=== PATIENT | female | born 1990 | race Two or more races ===

== ENCOUNTER 2024-03-30 13:48 | Inpatient (IN) | payer BC ==
[~2024-03-30] VITALS: Ht 160 cm; Wt 79.4 kg
[2024-03-30 14:08] VITALS: BP 105/83; PULSE 124; RESP 18; TEMP 97.6; O2SAT 98
[2024-03-30] MEDS: NACL 0.9% 1,000 ML IV ONE (14:46)
[2024-03-30] MEDS: KETOROLAC 30 MG/ML VIAL IVP ONE (14:46)
[2024-03-30 14:55] LABS: BASOPHILS # (AUTO) 0.1 K/uL (0.00-0.22); BASOPHILS % (AUTO) 0.6 % (0.0-2.0); EOSINOPHILS % (AUTO) 0.2 % (0.0-4.0); HEMATOCRIT 49.4 % (36-48); HEMOGLOBIN 17.2 g/dL (12.0-16.0); LYMPHOCYTES # (AUTO) 1.7 K/uL (2.5-16.5); LYMPHOCYTES % (AUTO) 16.6 % (20.5-51.1); MEAN CORPUSCULAR HEMOGLOBIN 31 pg (27-31); MEAN CORPUSCULAR HGB CONC 35 g/dL (33-37); MONOCYTES % (AUTO) 9.6 % (1.7-9.3); NEUTROPHILS # (AUTO) 7.6 K/uL (1.8-7.7); PLATELET COUNT (AUTO) 368 K/uL (140-450); RED BLOOD CELL COUNT(AUTO) 5.55 MIL/uL (4.20-5.40); RED CELL DISTRIBUTION WIDTH 12.9 % (11.6-13.7); WHITE BLOOD COUNT (AUTO) 10.4 K/uL (4.8-10.8)
[2024-03-30 15:02] LABS: BILIRUBIN,URINE 1+ (NEGATIVE); BLOOD, URINE 2+ (NEGATIVE); COLOR,URINE YELLOW (YELLOW); LEUKOCYTE ESTERASE ,URINE NEGATIVE (NEGATIVE); NITRITE, URINE NEGATIVE (NEGATIVE); PROTEIN,URINE 1+ (NEGATIVE); UGLUCOSE NEGATIVE (NEGATIVE); UROBILINOGEN,URINE 0.2 EU/dL (0.2 - 1)
[2024-03-30] MEDS: NACL 0.9% 1,000 ML IV SCH ×2 (15:02→19:12)
[2024-03-30] MEDS: ONDANSETRON 4 MG/2 ML VIAL IVP ONE (15:04)
[2024-03-30 15:16] LABS: ICTOTEST POSITIVE (NEGATIVE)
[2024-03-30 15:17] LABS: APPEARANCE,URINE SLIGHTLY HAZY (CLEAR); BACTERIA,URINE 1+ /HPF (None Seen); MUCUS,URINE None Seen /LPF (None Seen); SQUAMOUS EPITHELIAL CELL,UR 4-10 (MOD) /LPF (0-3 (FEW)); WBC,URINE 0-5 /HPF (0-5)
[2024-03-30 15:21] LABS: ALBUMIN 4.5 g/dL (3.4-5.0); BILIRUBIN,DIRECT 0.3 mg/dL (0.0-0.3); TOTAL PROTEIN, SERUM 9.3 g/dL (6.4-8.2)
[2024-03-30 15:23] LABS: ANION GAP 28.1 (8-16); CALCIUM 9.6 mg/dL (8.5-10.1); CARBON DIOXIDE 18.5 mmol/L (21-32); CREATININE 1.1 mg/dL (0.6-1.3)
[2024-03-30 15:25] LABS: POTASSIUM 2.6 mmol/L (3.5-5.1)
[2024-03-30] MEDS: POTASSIUM CHL 20 MEQ/NACL 0.9% 1,000 ML IV ONE (15:30)
[2024-03-30] MEDS: KCL 20 MEQ IN 100 mL PREMIX 100 ML IV ONE (16:04)
[2024-03-30] MEDS ORDERED: ACETAMINOPHEN 325 MG TAB PO PRN (17:55)
[2024-03-30] MEDS ORDERED: MAG SULF 2000 MG/WATER PREMIX 50 ML IV PRN (17:55)
[2024-03-30] MEDS ORDERED: MORPHINE SULFATE 4 MG/ML SYR IVP PRN (17:55)
[2024-03-30] MEDS ORDERED: ONDANSETRON 4 MG/2 ML VIAL IVP PRN (17:55)
[2024-03-30 23:32] VITALS: O2SAT 99
[2024-03-30] MEDS: HYDROcodone/APAP 5/325 MG 1 TAB TAB PO PRN (23:53)
[2024-03-31 00:54] LABS: ANION GAP 18.7 (8-16); CALCIUM 7.5 mg/dL (8.5-10.1); CREATININE 0.7 mg/dL (0.6-1.3); TOTAL BILIRUBIN 0.7 mg/dL (0.0-1.0); TOTAL PROTEIN, SERUM 6.3 g/dL (6.4-8.2)
[2024-03-31 00:57] LABS: POTASSIUM 2.7 mmol/L (3.5-5.1)
[2024-03-31] MEDS: KCL 20 MEQ IN 100 mL PREMIX 200 ML IV PRN (01:11)
[2024-03-31 05:07] VITALS: O2SAT 99
[2024-03-31 07:12] LABS: BASOPHILS # (AUTO) 0.1 K/uL (0.00-0.22); BASOPHILS % (AUTO) 1.7 % (0.0-2.0); EOSINOPHILS # (AUTO) 0.1 K/uL (0-0.4); EOSINOPHILS % (AUTO) 2.5 % (0.0-4.0); HEMATOCRIT 37.9 % (36-48); HEMOGLOBIN 13.2 g/dL (12.0-16.0); LYMPHOCYTES # (AUTO) 2.4 K/uL (2.5-16.5); LYMPHOCYTES % (AUTO) 41.1 % (20.5-51.1); MEAN CORPUSCULAR HEMOGLOBIN 31 pg (27-31); MEAN CORPUSCULAR HGB CONC 35 g/dL (33-37); MEAN CORPUSCULAR VOLUME 89.3 fL (80-94); MONOCYTES # (AUTO) 0.6 K/uL (0.8-1.0); MONOCYTES % (AUTO) 9.5 % (1.7-9.3); NEUTROPHILS # (AUTO) 2.7 K/uL (1.8-7.7); NEUTROPHILS % (AUTO) 45.2 % (42.2-75.2); PLATELET COUNT (AUTO) 236 K/uL (140-450); RED BLOOD CELL COUNT(AUTO) 4.24 MIL/uL (4.20-5.40); WHITE BLOOD COUNT (AUTO) 5.9 K/uL (4.8-10.8)
[2024-03-31 08:10] LABS: ANION GAP 15.9 (8-16); CALCIUM 7.6 mg/dL (8.5-10.1); CARBON DIOXIDE 21.2 mmol/L (21-32); CREATININE 0.7 mg/dL (0.6-1.3); POTASSIUM 3.1 mmol/L (3.5-5.1)
[2024-03-31 08:16] LABS: ALBUMIN 2.9 g/dL (3.4-5.0); MAGNESIUM 1.7 mg/dL (1.8-2.4); TOTAL BILIRUBIN 0.7 mg/dL (0.0-1.0); TOTAL PROTEIN, SERUM 6.2 g/dL (6.4-8.2)
[2024-03-31 08:43] VITALS: BP 98/68; PULSE 81; PULSE 84; RESP 18; TEMP 97.2; O2SAT 99
[2024-03-31 12:00] VITALS: BP 97/65; PULSE 79; PULSE 82; RESP 18; TEMP 97.5; O2SAT 100
[2024-03-31] MEDS: POTASSIUM CHLORIDE 10 MEQ TABER PO PRN (12:24)
[2024-03-31] MEDS: MAGNESIUM OXIDE 400 MG TAB PO PRN (12:24)
[2024-03-31] MEDS: DOCUSATE SODIUM 100 MG GELCAP PO SCH (12:24)
[2024-03-31] MEDS: SODIUM BICARBONATE 8.4% 100 MEQ in NACL 0.9% 1,000 ML IV SCH (14:00)
[2024-03-31 16:00] VITALS: BP 98/72; PULSE 80; PULSE 83; RESP 18; TEMP 97.4; O2SAT 99
[2024-03-31] MEDS: MAGNESIUM OXIDE 400 MG TAB PO SCH (17:30)
[2024-03-31] MEDS: POTASSIUM CHLORIDE 10 MEQ TABER PO SCH (17:30)
== END 2024-03-31 20:09 | disposition home or self-care (01) | DRG 641 ==
LOC: MED 13:48 → MTU 17:54
PROVIDERS: ADMIT Hospitalist; ATTEND Hospitalist
DX: E86.0 Dehydration (principal); E87.6 Hypokalemia; T50.995A Adverse effect of other drugs, medicaments and biological substances, initial encounter; Y92.89 Other specified places as the place of occurrence of the external cause
CPT/HCPCS: 36415; 80048; 80053; 80076; 81001; 82150; 83605; 83690; 83735; 85025; 87081; 96361; 96365; 96375; 99285; J1644; J1885; J2405; J3480; J3490; J7030